=== PATIENT | female | born 1985 | race Caucasian/White ===

== ENCOUNTER 2019-04-05 08:46 | Emergency (ER) | payer OTHER, MEDICAID ==
[~2019-04-05] VITALS: Ht 167.6 cm; Wt 90.7 kg
[~2019-04-05 08:46] MED LIST: CELEXA40 MG PO; INDOMETHACIN 2525 MG PO; TOPAMAX25 M1 PO; [UNRECOGNIZED DRUG - OTHER]
[2019-04-05 08:55] VITALS: BP 185/115
== END 2019-04-05 09:15 | disposition left against medical advice (07) ==
LOC: M.ERS 08:46
DX: L01.00 Impetigo, unspecified (principal); K12.1 Other forms of stomatitis; M32.9 Systemic lupus erythematosus, unspecified; F17.210 Nicotine dependence, cigarettes, uncomplicated; Z90.49 Acquired absence of other specified parts of digestive tract; Z98.890 Other specified postprocedural states